=== PATIENT | female | born 1960 | race Caucasian/White ===

== ENCOUNTER → 2017-02-18 | Outpatient (CLI) | payer BC, MEDICARE ==
--- NOTE | 2017-02-18 17:00 | RADRPT ---
PROCEDURE: CT Chest. CLINICAL INDICATION: Dyspnea and shortness of breath. Tobacco abuse TECHNIQUE: CT scan of the chest without contrast was performed on the [employer] volumetric [address] [facility] without contrast. Coronal and sagittal reformatted images were obtained from the axial source images. The CTDI vol is 2.74 mGy and the DLP is 98.55 mGy-cm. COMPARISON: None. FINDINGS: The lungs are clear. No focal opacification, effusion, pneumothorax, edema, or nodules are seen. T here is no acute infiltrate. The mediastinum and hilum are unremarkable without evidence for mass or lymphadenopathy. The vascular structures of the mediastinum are unremarkable in course and calibe r. The heart size is normal without evidence for pericardial thickening or effusion. The axillary regions, subpectoral regions, and supraclavicular regions are all unremarkable. A small hiatal herni a is seen. Imaging obtained through the upper abdomen reveals no acute abnormality. The osseous str uctures are intact. No osteolytic or osteoblastic lesion is detected. IMPRESSION: 1. No CT evidence for acute pathology in the chest. 2. Small hiatal hernia. RPTAT: HPNM Physician Jak Date Time Electronically viewed and signed by Physician Jak on 02/18/2017 17:00 /
== END | disposition home or self-care (01) ==
LOC: C/S 10:50
PROVIDERS: ATTEND Internal Medicine Pulmonary Disease
DX: Z72.0 Tobacco use (principal)
CPT/HCPCS: 71250